=== PATIENT | female | born 1985 | race Caucasian/White ===

== ENCOUNTER 2021-06-06 05:49 | Emergency (ER) | payer OTHER ==
[2021-06-06] MEDS ORDERED: PHENTERMINE H37.5 M2 PO (06:00)
[2021-06-06 06:56] LABS: BASO # 0.04 (0.02-0.10); EOS # 0.15 (0.04-0.40); EOS % 1.2 % (1.0-5.0); HEMATOCRIT 39.9 % (37.0-47.0); HEMOGLOBIN 13.9 g/dL (12.5-16.0); MEAN CELL VOLUME 88 fl (78-100); MEAN CORPUSCULAR HEMOGLOBIN 31 pg (27-31); MEAN CORPUSCULAR HGB CONC 35 g/dL (33-37); MEAN PLATELET VOLUME 9.7 fl (7.4-10.4); MONO # 0.64 (0.20-0.80); NEU # 8.14 (1.40-6.50); PLATELET COUNT 342 K/mm3 (130-400); RED BLOOD COUNT 4.54 M/mm3 (4.10-5.30); RED CELL DISTRIBUTION WIDTH 12.3 % (11.5-14.5); WHITE BLOOD COUNT 12.2 K/mm3 (4.8-10.8)
[2021-06-06 07:02] LABS: URINE APPEARANCE CLOUDY; URINE BILIRUBIN NEGATIVE (NEGATIVE); URINE BLOOD 250 ery/uL (NEGATIVE); URINE COLOR YELLOW; URINE GLUCOSE NEGATIVE (NEGATIVE); URINE KETONE NEGATIVE (NEGATIVE); URINE LEUKOCYTE ESTERASE NEGATIVE (NEGATIVE); URINE NITRATE NEGATIVE (NEGATIVE); URINE PROTEIN(semi-quant) 1+ mg/dL (NEGATIVE); URINE UROBILINOGEN NORMAL (NORMAL)
[2021-06-06 07:05] LABS: ALBUMIN 4.2 g/dL (3.5-5.0); POTASSIUM 3.6 mmol/L (3.5-5.1)
[2021-06-06 07:07] LABS: CALCIUM 8.7 mg/dL (8.3-10.5)
[2021-06-06 07:08] LABS: TOTAL PROTEIN 7.8 g/dL (6.4-8.3)
[2021-06-06 07:10] LABS: TOTAL BILIRUBIN 0.5 mg/dL (0.2-1.2)
[2021-06-06] MEDS ORDERED: PERCOCET 325 MG1 TA2 PO (08:56)
[2021-06-06] MEDS ORDERED: ZOFRAN ODT4 MG PO (08:56)
[2021-06-06 09:03] VITALS: BP 108/75
[2021-06-07] MEDS ORDERED: IBU800 M1 PO (19:23)
[2021-06-07] MEDS ORDERED: TYLENOL EXTRA500 M2 PO (19:23)
== END 2021-06-06 09:01 | disposition home or self-care (01) ==
LOC: ED 05:49
PROVIDERS: Family Medicine
DX: N20.1 Calculus of ureter (principal)
CPT/HCPCS: J1885; J2405; J3010; J7030

== ENCOUNTER 2021-06-07 19:08 | Emergency (ER) | payer OTHER ==
[~2021-06-07 19:08] MED LIST: PERCOCET 325 MG1 TA2 PO; PHENTERMINE H37.5 M2 PO; ZOFRAN ODT4 MG PO
[2021-06-07] MEDS ORDERED: IBU800 M1 PO (19:23)
[2021-06-07] MEDS ORDERED: TYLENOL EXTRA500 M2 PO (19:23)
[2021-06-07 19:26] LABS: BASO # 0.04 (0.02-0.10); EOS # 0.17 (0.04-0.40); HEMATOCRIT 40.7 % (37.0-47.0); HEMOGLOBIN 14.2 g/dL (12.5-16.0); LYMPH# 2.55 (1.50-4.00); MEAN CELL VOLUME 88 fl (78-100); MEAN CORPUSCULAR HEMOGLOBIN 31 pg (27-31); MEAN CORPUSCULAR HGB CONC 35 g/dL (33-37); MEAN PLATELET VOLUME 9.3 fl (7.4-10.4); NEU # 12.94 (1.40-6.50); PLATELET COUNT 362 K/mm3 (130-400); RED BLOOD COUNT 4.61 M/mm3 (4.10-5.30); RED CELL DISTRIBUTION WIDTH 12.3 % (11.5-14.5); WHITE BLOOD COUNT 16.7 K/mm3 (4.8-10.8)
[2021-06-07 19:48] LABS: ALBUMIN 4.3 g/dL (3.5-5.0); POTASSIUM 4.1 mmol/L (3.5-5.1)
[2021-06-07 19:49] LABS: CALCIUM 9.2 mg/dL (8.3-10.5)
[2021-06-07 19:51] LABS: TOTAL PROTEIN 8.1 g/dL (6.4-8.3)
[2021-06-07 19:52] LABS: TOTAL BILIRUBIN 0.4 mg/dL (0.2-1.2)
[2021-06-07 22:01] LABS: URINE APPEARANCE HAZY; URINE BILIRUBIN NEGATIVE (NEGATIVE); URINE BLOOD 250 ery/uL (NEGATIVE); URINE COLOR YELLOW; URINE GLUCOSE NEGATIVE (NEGATIVE); URINE KETONE NEGATIVE (NEGATIVE); URINE LEUKOCYTE ESTERASE TRACE (NEGATIVE); URINE NITRATE NEGATIVE (NEGATIVE); URINE PROTEIN(semi-quant) TRACE mg/dL (NEGATIVE); URINE UROBILINOGEN NORMAL (NORMAL)
[2021-06-07 22:02] LABS: URINE MUCUS PRESENT (NOT PRESENT)
[2021-06-08 07:02] LABS: BASO # 0.03 (0.02-0.10); EOS # 0.15 (0.04-0.40); EOS % 1.3 % (1.0-5.0); HEMATOCRIT 34.6 % (37.0-47.0); LYMPH# 2.49 (1.50-4.00); MEAN CELL VOLUME 89 fl (78-100); MEAN CORPUSCULAR HEMOGLOBIN 31 pg (27-31); MEAN CORPUSCULAR HGB CONC 35 g/dL (33-37); MEAN PLATELET VOLUME 9.4 fl (7.4-10.4); MONO # 0.63 (0.20-0.80); NEU # 7.85 (1.40-6.50); PLATELET COUNT 283 K/mm3 (130-400); RED BLOOD COUNT 3.87 M/mm3 (4.10-5.30); RED CELL DISTRIBUTION WIDTH 12.6 % (11.5-14.5); WHITE BLOOD COUNT 11.2 K/mm3 (4.8-10.8)
[2021-06-08 07:06] LABS: ALBUMIN 3.6 g/dL (3.5-5.0)
[2021-06-08 07:07] LABS: POTASSIUM 4.3 mmol/L (3.5-5.1)
[2021-06-08 07:08] LABS: CALCIUM 7.8 mg/dL (8.3-10.5)
[2021-06-08 07:09] LABS: TOTAL PROTEIN 6.5 g/dL (6.4-8.3)
[2021-06-08 07:11] LABS: TOTAL BILIRUBIN 0.4 mg/dL (0.2-1.2)
[2021-06-08 07:13] VITALS: BP 114/74
== END 2021-06-08 07:29 | disposition short-term general hospital (02) ==
LOC: ED 19:08
PROVIDERS: Nurse Practitioner
DX: N13.2 Hydronephrosis with renal and ureteral calculous obstruction (principal); N39.0 Urinary tract infection, site not specified; Z20.822 Contact with and (suspected) exposure to COVID-19; Z90.49 Acquired absence of other specified parts of digestive tract; Z90.710 Acquired absence of both cervix and uterus
CPT/HCPCS: J0696; J1885; J2270; J2405; J2550; J3010; J7030; Q9967

== ENCOUNTER → 2021-12-27 | Outpatient (CLI) | payer OTHER ==
[~2021-12-27] MED LIST changes: +IBU800 M1 PO; +TYLENOL EXTRA500 M2 PO
[2021-12-27 14:40] LABS: D-DIMER 0.4 mg/L FEU (0.15-0.50)
== END ==
LOC: LAB 13:02
PROVIDERS: Nurse Practitioner Family
DX: R00.0 Tachycardia, unspecified (principal); R06.00 Dyspnea, unspecified

== ENCOUNTER 2025-01-18 17:15 | Emergency (ER) | payer BC ==
[~2025-01-18] VITALS: Ht 167.6 cm; Wt 81.2 kg
[2025-01-18] MEDS ORDERED: OZEMPIC0.25 MG/02 SQ (17:33)
[2025-01-18] MEDS ORDERED: NS 1,000 ML IV SCH (18:15)
[2025-01-18] MEDS ORDERED: Ketorolac 30 MG/ML VIAL IV ONE (18:15)
[2025-01-18] MEDS ORDERED: fentaNYL 100 MCG/2 ML VIAL IV ONE ×2 (18:15→19:00)
[2025-01-18 18:27] LABS: BASO # 0.02 K/mm3 (0.02-0.10); EOS # 0.13 K/mm3 (0.04-0.40); EOS % 1.5 % (1.0-5.0); HEMATOCRIT 44.5 % (37.0-47.0); HEMOGLOBIN 15.1 g/dL (12.5-16.0); LYMPH# 2.19 K/mm3 (1.50-4.00); MEAN CELL VOLUME 90 fl (78-100); MEAN CORPUSCULAR HEMOGLOBIN 30 pg (27-31); MEAN CORPUSCULAR HGB CONC 34 g/dL (33-37); MEAN PLATELET VOLUME 9.3 fl (7.4-10.4); MONO # 0.58 K/mm3 (0.20-0.80); NEU # 5.75 K/mm3 (1.40-6.50); PLATELET COUNT 355 K/mm3 (130-400); RED BLOOD COUNT 4.96 M/mm3 (4.10-5.30); RED CELL DISTRIBUTION WIDTH 12.5 % (11.5-14.5); WHITE BLOOD COUNT 8.7 K/mm3 (4.8-10.8)
[2025-01-18 18:34] LABS: ALBUMIN 4.3 g/dL (3.5-5.0)
[2025-01-18 18:35] LABS: CALCIUM 9.2 mg/dL (8.3-10.5)
[2025-01-18 18:37] LABS: TOTAL PROTEIN 8.3 g/dL (6.4-8.3)
[2025-01-18 18:38] LABS: TOTAL BILIRUBIN 0.6 mg/dL (0.2-1.2)
[2025-01-18 18:39] LABS: URINE APPEARANCE CLEAR (CLEAR); URINE BILIRUBIN 1+ (NEGATIVE); URINE BLOOD 2+ (NEGATIVE); URINE COLOR DARK YELLOW (YELLOW); URINE GLUCOSE NEGATIVE (NEGATIVE); URINE KETONE TRACE (NEGATIVE); URINE LEUKOCYTE ESTERASE NEGATIVE (NEGATIVE); URINE NITRATE NEGATIVE (NEGATIVE); URINE PROTEIN(semi-quant) 2+ (NEGATIVE)
[2025-01-18 18:40] LABS: URINE MUCUS PRESENT (NOT PRESENT)
[2025-01-18] MEDS ORDERED: CEPHALEXIN500 M1 PO (20:40)
[2025-01-18] MEDS ORDERED: cefTRIAXone 1 G in Water For Injection,Sterile 10 ML IV ONE (20:45)
[2025-01-18 21:00] VITALS: BP 126/78
== END 2025-01-18 21:02 | disposition home or self-care (01) ==
LOC: ED 17:15
PROVIDERS: Family Medicine
DX: M54.50 Low back pain, unspecified (principal); R10.32 Left lower quadrant pain; R82.81 Pyuria; Z87.442 Personal history of urinary calculi
CPT/HCPCS: J0696; J1885; J3010; J7030

== ENCOUNTER 2025-02-12 19:00 | Emergency (ER) | payer BC ==
[~2025-02-12 19:00] MED LIST changes: +CEPHALEXIN500 M1 PO; +OZEMPIC0.25 MG/02 SQ
[2025-02-12] MEDS ORDERED: Morphine 10 MG/ML VIAL IM ONE (19:30)
[2025-02-12] MEDS ORDERED: KETOROLAC10 MG PO (20:13)
[2025-02-12 20:31] VITALS: BP 138/86
== END 2025-02-12 20:36 | disposition home or self-care (01) ==
LOC: ED 19:00
DX: S59.912A Unspecified injury of left forearm, initial encounter (principal); E66.9 Obesity, unspecified; W23.2XXA Caught, crushed, jammed or pinched between a moving and stationary object, initial encounter; Y93.01 Activity, walking, marching and hiking
CPT/HCPCS: J2270